=== PATIENT | female | born 1965 | race Caucasian/White ===

== ENCOUNTER 2017-04-03 20:19 | Emergency (ER) | payer BC, OTHER ==
[~2017-04-03] VITALS: Ht 152.4 cm; Wt 58.0 kg
[~2017-04-03 20:19] MED LIST: ESTR.3 PO; OMEP20TA PO; PHEN37.5 PO; [UNRECOGNIZED DRUG - SUPPLY] TOP
[2017-04-03 20:21] VITALS: BP 173/103; PULSE 71; RESP 20; TEMP 98; O2SAT 97
--- NOTE | 2017-04-03 20:39 | PD ---
HPI . abdominal pain x 4 days Chief Complaint: Abdominal Pain Time Seen by Provider: 20:39 Travel History International Travel<30 days: No Contact w/Intl Traveler<30days: No Traveled to known affect area: No History of Present Illness HPI 51-year-old female with no significant past medical history here with complaints of abdominal pain for the past 4 days. Pain is located in the left upper quadrant and radiates into the left chest wall and axilla. Patient says that this pain just popped up out of nowhere. She does report having similar issues several years ago, but tells me that nothing was ever actually diagnosed. She does report a major abdominal surgery about 10 years ago due to what she describes as bowel obstruction. At this present time. Patient complains of sharp abdominal pain rated as 8/10 radiating up into the chest and left axilla. She admits to chronic constipation. She also tells me that despite eating she always feels hungry. She denies any nausea, vomiting, diarrhea, urinary changes, bowel movement changes or vaginal bleeding. PFSH Past Medical History Medical History: Denies Significant Hx Diabetes: No Diminished Hearing: No Tetanus Vaccination: Unknown Influenza Vaccination: No ?: Not Menopausal: Yes Past Surgical History Section: Yes (3) Gynecologic Surgery: Yes (partial hysterectomy, C- Section ) Hysterectomy: Yes (partial ) Other Surgery: Yes (breast augmentation, ) Social History Alcohol Use: Yes Tobacco Use: Yes (4 cig per day) Substance Use: No Allergies-Medications (Allergen,Severity, Reaction): Coded Allergies: No Known Allergies (Unverified , 05/12/16) Reported Meds & Prescriptions Reported Meds & Active Scripts Active Zantac (Ranitidine HCl) 150 Mg Tab 150 Mg PO BID 15 Days Review of Systems General / Constitutional: No: Fever Eyes: No: Visual changes HENT: No: Headaches Cardiovascular: Positive: Chest Pain or Discomfort Respiratory: No: Shortness of Breath Gastrointestinal: Positive: Abdominal Pain Genitourinary: No: Dysuria Musculoskeletal: No: Pain Skin: No Rash Neurologic: No: Weakness Psychiatric: No: Depression Endocrine: No: Polydipsia Hematologic/Lymphatic: No: Easy Bruising Physical Exam Narrative GENERAL: AAO x 3, no acute distress, Well-nourished, well-developed patient. SKIN: Warm and dry. No visible rashes or bruising. HEAD: Normocephalic and atraumatic. EYES: No scleral icterus. No injection or drainage. ENT: No nasal drainage noted. Mucous membranes pink. Airway patent. Moist mucous membranes. NECK: Supple, trachea midline. No JVD. CARDIOVASCULAR: Regular rate and rhythm without murmurs, gallops, or rubs. RESPIRATORY: Breath sounds equally diminished bilaterally. No accessory muscle use. No rhonchi or rales. No wheezing GASTROINTESTINAL: Abdomen soft, non-tender, nondistended. No rebound or guarding. No Cooper's or McBurney's point tenderness. EXTREMITIES: No cyanosis or edema. BACK: Nontender without obvious deformity. No CVA tenderness. NEURO: CN II-12 intact, maintenance representative strength normal b/l, UE and LE 5/5, no focal deficits PSYCH: AAO x 3, normal affect. Data Data Last Documented VS Vital Signs Date Time Temp Pulse Resp B/P Pulse Ox O2 Delivery O2 Flow Rate FiO2 04/04/17 00:17 98.4 66 18 128/71 95 Room Air Orders Complete Blood Count With Diff (04/03/17 20:45) Comprehensive Metabolic Panel (04/03/17 20:45) Lipase (04/03/17 20:45) Prothrombin Time / Inr (Pt) (04/03/17 20:45) Act Partial Throm Time (Ptt) (04/03/17 20:45) Urinalysis - C+S If Indicated (04/03/17 20:45) Ct Abd/Pel W Iv Contrast(Rout) (04/03/17 20:45) Iv Access Insert/Monitor (04/03/17 20:45) Ecg Monitoring (04/03/17 20:45) Oximetry (04/03/17 20:45) Sodium Chloride 0.9% Flush (Ns Flush) (04/03/17 20:45) Electrocardiogram (04/03/17 20:45) Ckmb (Isoenzyme) Profile (04/03/17 20:45) Magnesium (Mg) (04/03/17 20:45) Troponin I (04/03/17 20:45) Chest, Single Ap (04/03/17 20:45) Bilateral Bp Monitoring (04/03/17 20:45) Oxygen Administration (04/03/17 20:45) Sodium Chloride 0.9% Flush (Ns Flush) (04/03/17 20:45) Morphine Inj (Morphine Inj) (04/03/17 21:15) Iohexol 350 Inj (Omnipaque 350 Inj) (04/03/17 21:16) CKMB (04/03/17 20:53) CKMB% (04/03/17 20:53) Ketorolac Inj (Toradol Inj) (04/03/17 22:00) Al-Mag Hy-Si 40-40-4 Mg/Ml Liq (Mag-Al P (04/03/17 22:15) Ranitidine Liq (Zantac Liq) (04/03/17 22:15) Lidocaine 2% Viscous (Xylocaine 2% Visco (04/03/17 22:15) Labs Laboratory Tests Test 04/03/17 04/03/17 20:53 22:37 White Blood Count 10.0 TH/MM3 Red Blood Count 4.42 MIL/MM3 Hemoglobin 13.6 GM/DL Hematocrit 40.8 % Mean Corpuscular Volume 92.3 FL Mean Corpuscular Hemoglobin 30.7 PG Mean Corpuscular Hemoglobin 33.2 % Concent Red Cell Distribution Width 12.7 % Platelet Count 395 TH/MM3 Mean Platelet Volume 8.4 FL Neutrophils (%) (Auto) 51.9 % Lymphocytes (%) (Auto) 37.1 % Monocytes (%) (Auto) 7.4 % Eosinophils (%) (Auto) 3.1 % Basophils (%) (Auto) 0.5 % Neutrophils # (Auto) 5.2 TH/MM3 Lymphocytes # (Auto) 3.7 TH/MM3 Monocytes # (Auto) 0.7 TH/MM3 Eosinophils # (Auto) 0.3 TH/MM3 Basophils # (Auto) 0.1 TH/MM3 CBC Comment DIFF FINAL Differential Comment Prothrombin Time 10.6 SEC Prothromb Time International 1.0 RATIO Ratio Activated Partial 28.2 SEC Thromboplast Time Sodium Level 138 MEQ/L Potassium Level 4.2 MEQ/L Chloride Level 107 MEQ/L Carbon Dioxide Level 22.6 MEQ/L Anion Gap 8 MEQ/L Blood Urea Nitrogen 17 MG/DL Creatinine 0.65 MG/DL Estimat Glomerular Filtration 95 ML/MIN Rate Random Glucose 79 MG/DL Calcium Level 9.4 MG/DL Magnesium Level 2.2 MG/DL Total Bilirubin 0.4 MG/DL Aspartate Amino Transf 22 U/L (AST/SGOT) Alanine Aminotransferase 29 U/L (ALT/SGPT) Alkaline Phosphatase 64 U/L Total Creatine Kinase 106 U/L Creatine Kinase MB 1.4 NG/ML Troponin I LESS THAN 0.02 NG/ML Total Protein 7.6 GM/DL Albumin 4.0 GM/DL Lipase 181 U/L Urine Color YELLOW Urine Turbidity CLEAR Urine pH 6.0 Urine Specific [place] GREATER THAN 1.050 Urine Protein TRACE mg/dL Urine Glucose (UA) NEG mg/dL Urine Ketones NEG mg/dL Urine Occult Blood NEG Urine Nitrite NEG Urine Bilirubin NEG Urine Urobilinogen LESS THAN 2.0 MG/DL Urine Leukocyte Esterase NEG Urine RBC LESS THAN 1 /hpf Urine WBC 1 /hpf Urine Squamous Epithelial 2 /hpf Cells Microscopic Urinalysis Comment CULT NOT INDICATED MDM Medical Decision Making Medical Screen Exam Complete: Yes Emergency Medical Condition: Yes Medical Record Reviewed: Yes Differential Diagnosis diverticulitis, less likely ACS, gastritis, pyelonephritis, constipation Narrative Course 51 yr old female here with c/o abdominal pain x 4 days. IV access obtained and patient placed on cardiac monitoring. Labs and imaging has been ordered. Morphine given for pain control. 2153: patient requesting more pain medication; toradol given. Workup thus far is negative. I am waiting on a urine sample to see if this patient has any evidence of urinary tract infection. The nurse has repeatedly asked her for sample and she tells us she is unable to provide at this moment. Patient also assessed by Dr. Choe. GI cocktail provided. It seems patient may have some type of GERD or gastritis. Urine negative. I will go ahead and treat patient for GERD with Zantac. She will need to f/u with her PCP. If symptoms continue, she would benefit from GI consult as an outpatient. I have discussed all of this with her and her spouse. Patient verbalized understanding of instructions, questions were answered, and thanked me for their care. I advised them if their condition worsens, please return to the nearest emergency room for further care. Diagnosis Primary Impression: GERD (gastroesophageal reflux disease) Qualified Code: K21.9 - Gastroesophageal reflux disease without esophagitis Additional Impression: Abdominal pain Qualified Code: R10.10 - Pain of upper abdomen Patient Instructions: General Instructions Additional Instructions: Please return to emergency department if your symptoms return or worsen. Follow up with your primary care provider. Take medications as prescribed. Med/Other Pt SpecificInfo: Prescription(s) given Scripts Ranitidine (Zantac)150 Mg Dxt725 Mg PO BID 15 Days Ref 0 Prov:Val Choe MD 04/03/17 Disposition: 01 DISCHARGE HOME Condition: Stable Radha Braden Apr 03, 2017 20:39 Radha Braden Apr 03, 2017 20:39
[2017-04-03] MEDS ORDERED: SODIUM CHLORIDE 0.9% FLUSH 10 ML FLUSH IVF PRN (20:45)
[2017-04-03] MEDS ORDERED: SODIUM CHLORIDE 0.9% FLUSH 10 ML FLUSH IV FLUSH PRN (20:45)
[2017-04-03 21:13] LABS: AUTOMATED NEUTROPHIL # 5.2 TH/MM3 (1.8-7.7); BASOPHIL # 0.1 TH/MM3 (0-0.2); BASOPHIL % 0.5 % (0.0-2.0); EOSINOPHIL # 0.3 TH/MM3 (0-0.4); EOSINOPHIL % 3.1 % (0.0-4.0); HEMATOCRIT 40.8 % (35.0-46.0); HEMO FLAGS DIFF FINAL; LYMPH % 37.1 % (9.0-44.0); LYMPHOCYTE # 3.7 TH/MM3 (1.0-4.8); MEAN CELL VOLUME 92.3 FL (80.0-100.0); MEAN CORPUSCULAR HEMOGLOBIN 30.7 PG (27.0-34.0); MEAN CORPUSCULAR HGB CONC 33.2 % (32.0-36.0); MONO % 7.4 % (0.0-8.0); NEUT % 51.9 % (16.0-70.0); PLATELET COUNT 395 TH/MM3 (150-450); RED BLOOD COUNT 4.42 MIL/MM3 (4.00-5.30); RED CELL DISTRIBUTION WIDTH 12.7 % (11.6-17.2)
[2017-04-03] MEDS ORDERED: MORPHINE SULFATE 4 MG/ML INJ IV PUSH ONE (21:15)
[2017-04-03] MEDS ORDERED: IOHEXOL 350 MG/ML 10 ML VIAL (for RAD DIAG) IV ONE (21:16)
[2017-04-03 21:25] LABS: APTT (PATIENT) 28.2 SEC (24.3-30.1); PROTHROMBIN TIME - PATIENT 10.6 SEC (9.8-11.6)
--- NOTE | 2017-04-03 21:27 | RADRPT ---
EXAM DATE/TIME: 04/03/2017 21:10 [facility] COMPARISON: No previous studies available for comparison. INDICATIONS : Chest pain. MEDICAL HISTORY : None. SURGICAL HISTORY : None. ENCOUNTER: Initial ACUITY: 4 - 6 days PAIN SCORE: 9/10 LOCATION: Left chest FINDINGS: A single view of the chest demonstrates the lungs to be symmetrically aerated without evidence of mas s, infiltrate or effusion. The cardiomediastinal contours are unremarkable. Osseous structures are intact. CONCLUSION: Negative for an acute process. Previous cervical spine surgery. Keyur Corbett MD FACR on April 03, 2017 at 21:24 Board Certified Radiologist. This report was verified electronically.
--- NOTE | 2017-04-03 21:28 | RADRPT ---
EXAM DATE/TIME: 04/03/2017 21:01 [facility] COMPARISON: No previous studies available for comparison. INDICATIONS : Left epigastric abdomen pain. IV CONTRAST: 75 cc Omnipaque 350 (iohexol) IV ORAL CONTRAST: No oral contrast ingested. RADIATION DOSE: 5.91 CTDIvol (mGy) MEDICAL HISTORY : None SURGICAL HISTORY : Hysterectomy. ENCOUNTER: Initial ACUITY: 1 day PAIN SCALE: 10/10 LOCATION: cranial TECHNIQUE: Volumetric scanning of the abdomen and pelvis was performed. Using automated exposure control and ad justment of the mA and/or kV according to patient size, radiation dose was kept as low as reasonably achievable to obtain optimal diagnostic quality images. DICOM format image data is available electro nically for review and comparison. FINDINGS: LOWER LUNGS: The visualized lower lungs are clear. LIVER: Homogeneous density without lesion. There is no dilation of the biliary tree. No calcified gallston es. SPLEEN: Normal size without lesion. PANCREAS: Within normal limits. KIDNEYS: Normal in size and shape. There is no mass, stone or hydronephrosis. ADRENAL GLANDS: Within normal limits. VASCULAR: There is no aortic aneurysm. BOWEL/MESENTERY: The stomach, small bowel, and colon demonstrate no acute abnormality. There is no free intraperitone al air or fluid. ABDOMINAL WALL: Within normal limits. RETROPERITONEUM: There is no lymphadenopathy. BLADDER: No wall thickening or mass. REPRODUCTIVE: 2.9 cm right adnexal cyst is noted. INGUINAL: There is no lymphadenopathy or hernia. MUSCULOSKELETAL: Within normal limits for patient age. CONCLUSION: Right adnexal cyst otherwise negative Keyur Corbett MD FACR on April 03, 2017 at 21:25 Board Certified Radiologist. This report was verified electronically.
[2017-04-03 21:34] LABS: ALT (GPT) 29 U/L (10-53)
[2017-04-03 21:38] LABS: ALKALINE PHOSPHATASE 64 U/L (45-117); CREATINE KINASE 106 U/L (26-192); TOTAL BILIRUBIN ADULT 0.4 MG/DL (0.2-1.0)
[2017-04-03 21:42] LABS: ANION GAP 8 MEQ/L (5-15); AST (GOT) 22 U/L (15-37); BICARBONATE 22.6 MEQ/L (21.0-32.0); BLOOD UREA NITROGEN 17 MG/DL (7-18); CHLORIDE 107 MEQ/L (98-107); GLOMERULAR FILTRATION RATE 95 ML/MIN (>89); MAGNESIUM 2.2 MG/DL (1.5-2.5); POTASSIUM 4.2 MEQ/L (3.5-5.1); SODIUM (NA) 138 MEQ/L (136-145)
[2017-04-03 21:51] LABS: CKMB 1.4 NG/ML (0.5-3.6)
[2017-04-03] MEDS ORDERED: KETOROLAC TROMETHAMINE 30 MG/ML (IVP) VIAL IV PUSH ONE (22:00)
[2017-04-03] MEDS ORDERED: LIDOCAINE VISCOUS 2% SOLN 15 ML UDC SWISH-SWAL ONE (22:15)
[2017-04-03] MEDS ORDERED: ALUMINUM/MAGNESIUM/SIMETH 30 ML CUP PO ONE (22:15)
[2017-04-03] MEDS ORDERED: RANITIDINE HCL SYRUP 150 MG/10 ML UDC PO ONE (22:15)
[2017-04-03 23:05] LABS: BLOOD, URINE NEG (NEG); COMMENT (UR) CULT NOT INDICATED; CULTURE IF INDICATED CULT NOT INDICATED; GLUCOSE,URINE NEG (NEG); KETONE, URINE NEG (NEG); NITRITE,URINE NEG (NEG); SQUAMOUS EPITHELIAL CELL URINE 2 /hpf (0-5); URINE COLOR YELLOW (YELLW/STRAW)
[2017-04-03] MEDS ORDERED: PROT40TA PO (23:14)
[2017-04-03] MEDS ORDERED: ZANT150T2 PO (23:17)
[2017-04-03 23:20] VITALS: O2SAT 98
[2017-04-04 00:17] VITALS: BP 128/71; PULSE 66; RESP 18; TEMP 98.4; O2SAT 95
--- NOTE | 2017-04-04 16:23 | EKG ---
Date Performed: 04/03/2017 Time Performed: 20:31:33 PTAGE: 51 years EKG: Sinus rhythm POSSIBLE RIGHT VENTRICULAR CONDUCTION DELAY BORDERLINE ECG INTERPRETATION BASED ON A DEFAULT AGE OF 40 YEARS PREVIOUS TRACING : 08/16/2015 12.08 Compared to prior tracing no significant change DOCTOR: Zac Lugo Interpretating Date/Time 04/04/2017 16:21:24
== END 2017-04-04 00:15 | disposition home or self-care (01) ==
LOC: NEPE 20:19
DX: R10.10 Upper abdominal pain, unspecified (principal); R07.9 Chest pain, unspecified; K59.00 Constipation, unspecified; K21.9 Gastro-esophageal reflux disease without esophagitis; F17.210 Nicotine dependence, cigarettes, uncomplicated; Z79.899 Other long term (current) drug therapy
CPT/HCPCS: 71010; 74177; 80053; 81001; 82550; 82552; 83690; 83735; 84484; 85025; 85610; 85730; 93005; 96374; 99285; J1885; Q9967